=== PATIENT | male | born 1965 | race Caucasian/White ===

== ENCOUNTER 2020-09-11 07:11 | Emergency (ER) | payer OTHER ==
[~2020-09-11] VITALS: Ht 180.3 cm; Wt 104.3 kg
[2020-09-11 07:45] LABS: BASOPHIL 0.8 % (0-2); EOSINOPHIL 4.4 % (0-5); HCT 46.4 % (42.0-52.0); HGB 15.4 g/dl (13.2-18.0); LYMPHOCYTE 37.5 % (15-48); MCH 30.5 pg (25.0-31.0); MCHC 33.2 g/dL (32.0-36.0); MCV 91.9 fL (78.0-100.0); MONOCYTE 8.7 % (0-12); MPV 9.5 fL (6.0-9.5); NEUTROPHIL 48.3 % (41-80); NRBC 0; PLT 311 K/uL (150-400); RBC 5.05 M/uL (4.70-6.00); RDW 12.8 % (11.5-14.0); WBC 7.7 K/uL (4.0-10.5)
[2020-09-11 07:50] LABS: INR 0.92 (0.9-1.2); PROTHROMBIN TIME 11.8 SECONDS (11.8-13.4); PTT 26.5 SECONDS (24.4-34.7)
[2020-09-11 07:51] LABS: D-DIMER 0.41 ug/mLFEU (0.00-0.41)
[2020-09-11 08:17] LABS: ALBUMIN 3.7 g/dL (3.4-5.0); BILIRUBIN - TOTAL 0.3 mg/dL (0.2-1.0); BUN/CREAT RATIO (CALC) 18.4 RATIO; CREATININE 0.87 mg/dL (0.67-1.17); GLOBULIN (CALCULATION) 3.7 g/dL; MAGNESIUM 1.8 mg/dL (1.8-2.4); POTASSIUM 4.6 mmol/L (3.5-5.1); TOTAL PROTEIN 7.4 g/dL (6.4-8.2)
[2020-09-11 08:28] LABS: PRO-BNP 51 pg/mL (<125)
== END 2020-09-11 14:29 | disposition other institution (70) ==
LOC: FER 07:11
PROVIDERS: Emergency Medicine
DX: I21.4 Non-ST elevation (NSTEMI) myocardial infarction (principal); F17.200 Nicotine dependence, unspecified, uncomplicated; Z20.822 Contact with and (suspected) exposure to COVID-19
CPT/HCPCS: 36415; 71045; 80053; 82550; 82553; 83735; 83874; 83880; 84484; 85025; 85379; 85610; 85730; 93005; J1644; J1885; U0002

== ENCOUNTER 2021-08-28 09:07 | Emergency (ER) | payer OTHER ==
[2021-08-28 11:00] LABS: BILIRUBIN NEGATIVE (NEGATIVE); BLOOD NEGATIVE Ery/uL (NEGATIVE); CLARITY CLEAR (CLEAR); COLOR YELLOW (YELLOW); GLUCOSE (U) NORMAL (NORMAL); LEUKOCYTES NEGATIVE Leu/uL (NEGATIVE); NITRITE NEGATIVE (NEGATIVE); PROTEIN NEGATIVE (NEGATIVE); SPECIFIC GRAVITY >=1.030 (1.001-1.030); UROBILINOGEN 0.2 mg/dL (0.2-1.0); pH 5.5 (5.0-9.0)
[2021-08-28 11:27] LABS: D-DIMER 0.51 ug/mLFEU (0.00-0.41); INR 0.93 (0.9-1.2); PROTHROMBIN TIME 12.2 SECONDS (11.9-13.9); PTT 27.9 SECONDS (24.9-34.6)
[2021-08-28 11:44] LABS: ALBUMIN 3.4 g/dL (3.4-5.0); BILIRUBIN - TOTAL 0.6 mg/dL (0.2-1.0); BUN/CREAT RATIO (CALC) 12.7 RATIO; CREATININE 0.79 mg/dL (0.67-1.17); GLOBULIN (CALCULATION) 3.9 g/dL; MAGNESIUM 1.8 mg/dL (1.8-2.4); POTASSIUM 4.3 mmol/L (3.5-5.1); TOTAL PROTEIN 7.3 g/dL (6.4-8.2)
[2021-08-28 11:49] LABS: BASOPHIL 0.4 % (0-2); EOSINOPHIL 0.9 % (0-5); HCT 45.8 % (42.0-52.0); HGB 15.3 g/dl (13.2-18.0); LYMPHOCYTE 14.1 % (15-48); MCH 30.2 pg (25.0-31.0); MCHC 33.4 g/dL (32.0-36.0); MCV 90.5 fL (78.0-100.0); MONOCYTE 8.3 % (0-12); MPV 9.7 fL (6.0-9.5); NEUTROPHIL 75.9 % (41-80); NRBC 0; PLT 247 K/uL (150-400); RBC 5.06 M/uL (4.70-6.00); WBC 11.3 K/uL (4.0-10.5)
[2021-08-28 12:10] LABS: LACTIC ACID 1.2 mmol/L (0.4-1.9)
[2021-08-28] MEDS ORDERED: MIRALAX17 GM PO (15:21)
== END 2021-08-28 15:45 | disposition home or self-care (01) ==
LOC: FER 09:07
PROVIDERS: Emergency Medicine
DX: K59.00 Constipation, unspecified (principal); R10.84 Generalized abdominal pain; R61 Generalized hyperhidrosis; I10 Essential (primary) hypertension; I25.2 Old myocardial infarction; F17.210 Nicotine dependence, cigarettes, uncomplicated; E78.5 Hyperlipidemia, unspecified; Z79.82 Long term (current) use of aspirin; Z79.899 Other long term (current) drug therapy; Z28.310 Unvaccinated for COVID-19
CPT/HCPCS: 36415; 71260; 80053; 81003; 83605; 83690; 83735; 84145; 84484; 85025; 85379; 85610; 85730; 93005; Q9967